=== PATIENT | female | born 1940 | race Caucasian/White ===

== ENCOUNTER 2022-07-13 22:00 | Inpatient (IN) | payer MEDICARE ==
[2022-07-13 22:27] VITALS: BMI 16.5
[2022-07-13] MEDS ORDERED: Ondansetron PF 4 MG/2 ML Vial IVP PRN (22:55)
[2022-07-13] MEDS ORDERED: Senokot S 8.6-50 MG TAB PO PRN (22:55)
[2022-07-13] MEDS ORDERED: Acetaminophen 325 MG TAB PO PRN (22:55)
[2022-07-13] MEDS ORDERED: Bisacodyl 5 MG TAB PO PRN (22:55)
[2022-07-13] MEDS ORDERED: Bisacodyl 10 MG SUPP PR PRN (22:55)
[2022-07-13] MEDS: Sodium Chloride 0.9% 1,000 ML IV SCH (23:39)
[2022-07-13] MEDS ORDERED: Dextrose 50% Abboject 50 ML SYRINGE SLOW IVP PRN (23:44)
[2022-07-13] MEDS ORDERED: Dextrose 5% in Water 1,000 ML IV PRN (23:44)
[2022-07-13] MEDS ORDERED: Ipratropium/Albuterol 3 ML NEB NEB PRN (23:53)
[2022-07-14 00:30] LABS: Troponin I 0.225 ng/mL (< 0.028)
[2022-07-14 02:19] LABS: Troponin I 0.208 ng/mL (< 0.028)
[2022-07-14 04:58] LABS: #Eosinphils 0.1 10x3/uL (0.0-0.5); #Monocytes 0.7 10x3/uL (0.0-1.1); #Neutrophils 7.2 10x3/uL (1.5-8.4); %Basophils 0.2 % (0.0-2.0); %Eosinophils 1.5 % (0.0-6.0); %Lymphocytes 13.4 % (18.0-47.0); %Monocytes 7.4 % (0.0-10.0); %Neutrophils 77.2 % (40.0-75.0); Hemoglobin 11.3 g/dL (12.0-15.5); Mean Corpuscular HGB CONC 34.2 g/dL (32.0-36.0); Mean Corpuscular Volume 90.7 fl (81.6-98.3); Mean Platelet Volume 9.9 fl (7.4-10.4); Platelet Count 150 10x3/uL (150-450); RBC Distribution Width 12.8 % (11.5-14.5); Red Blood Cell (RBC) Count 3.64 10x6/uL (3.90-5.03); White Blood Cell (WBC) Count 9.4 10x3/uL (3.5-10.5)
[2022-07-14 05:08] LABS: ALT (SGPT) 24 U/L (8-55); AST (SGOT) 26 U/L (5-34); Albumin 3.9 g/dL (3.4-4.8); Alkaline Phosphatase 72 U/L (40-110); Anion Gap 16 mmol/L (10-20); BUN (Urea Nitrogen) 28 mg/dL (9.8-20.1); Bilirubin, Direct 0.3 mg/dL (0.1-0.3); Bilirubin, Total 0.7 mg/dL (0.2-1.2); Calc. Creatinine Clearance 19 mL/min (70-130); Calcium 9.9 mg/dL (7.8-10.44); Carbon Dioxide 24 mmol/L (23-31); Chloride 100 mmol/L (98-107); Estimated GFR 31; Glucose 127 mg/dL (83-110); Magnesium 1.6 mg/dL (1.6-2.6); Potassium 4.1 mmol/L (3.5-5.1); Protein, Total 6.6 g/dL (5.8-8.1); Sodium 136 mmol/L (136-145)
[2022-07-14 06:50] LABS: Bilirubin Neg (Negative); Blood, Urine 150 (Negative); Clarity Slightly Cloudy (Clear); Glucose, Urine (Dipstick) Normal (Negative); Ketone, Urine Negative (Negative); Leukocyte 500 (Negative); Nitrite Negative (Negative); Protein, Urine (Dipstick) 100 mg/dl (Neg-Trace); Specific Gravity, Urine 1.005 (1.005-1.030); Urobilinogen Normal mg/dL (Less than 2)
[2022-07-14 07:01] LABS: Bacteria/HPF 4+ HPF (None Seen); CAUTI Indications for Culture Alt mental st,lethar; RBC/HPF 0-3 HPF (0-3); Squamous Epithelial 0-3 HPF (0-3)
[2022-07-14 07:02] LABS: Urine Culture Reflex No No
[2022-07-14] MEDS ORDERED: Aspirin Chewable 81 MG TAB PO SCH (09:00)
[2022-07-14] MEDS: Lantus 1000 UNITS/10 ML VIAL SC SCH ×2 (10:54→22:42)
[2022-07-14] MEDS: Magnesium Oxide 400 MG TAB PO SCH (11:05)
[2022-07-14] MEDS: Sodium Chloride 0.9% 1,000 ML IV SCH ×2 (11:11→16:25)
[2022-07-14] MEDS: Heparin 5,000 UNITS/ML VIAL SC SCH ×3 (11:29→22:03)
[2022-07-14] MEDS: HumaLOG 300 UNITS/3 ML VIAL SC PRN (16:40)
[2022-07-14 20:45] LABS: Campy jejuni + coli by PCR Negative (Negative); STEC Shiga Toxin 1+2 Negative (Negative); Salmonella spp. by PCR Negative (Negative); Shigella spp + EIEC by PCR Negative (Negative)
[2022-07-14] MEDS: Gabapentin 300 MG CAP PO SCH (22:01)
[2022-07-14] MEDS: Atorvastatin Calcium 40 MG TAB PO SCH (22:02)
[2022-07-14] MEDS: Sertraline 100 MG TAB PO SCH (22:02)
[2022-07-14] MEDS: Baclofen 10 MG TAB PO SCH (22:02)
[2022-07-14] MEDS: Ezetimibe 10 MG TAB PO SCH (22:02)
[2022-07-14] MEDS: Calcitriol 0.25 MCG CAP PO SCH (22:03)
[2022-07-15] MEDS: Sodium Chloride 0.9% 1,000 ML IV SCH ×2 (05:21→08:32)
[2022-07-15 06:09] LABS: #Eosinphils 0.3 10x3/uL (0.0-0.5); #Monocytes 0.6 10x3/uL (0.0-1.1); #Neutrophils 4.8 10x3/uL (1.5-8.4); %Basophils 0.6 % (0.0-2.0); %Eosinophils 3.7 % (0.0-6.0); %Lymphocytes 15.6 % (18.0-47.0); %Monocytes 8.7 % (0.0-10.0); Hemoglobin 9.8 g/dL (12.0-15.5); Mean Corpuscular HGB CONC 34.6 g/dL (32.0-36.0); Mean Corpuscular Volume 92.5 fl (81.6-98.3); Mean Platelet Volume 9.8 fl (7.4-10.4); Platelet Count 186 10x3/uL (150-450); RBC Distribution Width 12.8 % (11.5-14.5); Red Blood Cell (RBC) Count 3.06 10x6/uL (3.90-5.03); White Blood Cell (WBC) Count 6.8 10x3/uL (3.5-10.5)
[2022-07-15 06:34] LABS: Anion Gap 15 mmol/L (10-20); BUN (Urea Nitrogen) 29 mg/dL (9.8-20.1); Calc. Creatinine Clearance 20 mL/min (70-130); Calcium 9.1 mg/dL (7.8-10.44); Carbon Dioxide 23 mmol/L (23-31); Chloride 106 mmol/L (98-107); Estimated GFR 33; Glucose 158 mg/dL (83-110); Magnesium 1.4 mg/dL (1.6-2.6); Sodium 140 mmol/L (136-145)
[2022-07-15] MEDS ORDERED: Magnesium Sulfate 4 GM in Sodium Chloride 0.9% 250 ML 250 ML IVPB SCH (07:45)
[2022-07-15] MEDS ORDERED: Electrolyte Replacement Protocol 1 EACH FS SCH (07:45)
[2022-07-15] MEDS: Magnesium 2 GM/50 ML(in water) 2 GM in Premix Bag 1 BAG IVPB SCH ×2 (08:33→11:13)
[2022-07-15] MEDS: Magnesium Oxide 400 MG TAB PO SCH (08:35)
[2022-07-15] MEDS: Heparin 5,000 UNITS/ML VIAL SC SCH ×2 (08:38→14:25)
[2022-07-15] MEDS: Lantus 1000 UNITS/10 ML VIAL SC SCH (08:38)
[2022-07-15] MEDS: HumaLOG 300 UNITS/3 ML VIAL SC PRN ×2 (11:10→17:02)
[2022-07-15] MEDS: Sertraline 100 MG TAB PO SCH (21:54)
[2022-07-15] MEDS: Atorvastatin Calcium 40 MG TAB PO SCH (21:54)
[2022-07-15] MEDS: Gabapentin 300 MG CAP PO SCH (21:55)
[2022-07-15] MEDS: Calcitriol 0.25 MCG CAP PO SCH (21:55)
[2022-07-15] MEDS: Ezetimibe 10 MG TAB PO SCH (21:55)
[2022-07-15] MEDS: Baclofen 10 MG TAB PO SCH (21:56)
[2022-07-16] MEDS: Lantus 1000 UNITS/10 ML VIAL SC SCH ×3 (00:19→22:07)
[2022-07-16] MEDS: Sodium Chloride 0.9% 1,000 ML IV SCH ×3 (02:15→22:06)
[2022-07-16 05:57] LABS: #Eosinphils 0.1 10x3/uL (0.0-0.5); #Monocytes 0.5 10x3/uL (0.0-1.1); #Neutrophils 3.9 10x3/uL (1.5-8.4); %Basophils 0.4 % (0.0-2.0); %Eosinophils 2.2 % (0.0-6.0); %Lymphocytes 15.3 % (18.0-47.0); %Monocytes 8.4 % (0.0-10.0); %Neutrophils 73.3 % (40.0-75.0); Hemoglobin 8.9 g/dL (12.0-15.5); Mean Corpuscular HGB CONC 34.5 g/dL (32.0-36.0); Mean Corpuscular Hemoglobin 31.1 pg (27.0-33.0); Mean Corpuscular Volume 90.2 fl (81.6-98.3); Mean Platelet Volume 9.2 fl (7.4-10.4); Platelet Count 180 10x3/uL (150-450); RBC Distribution Width 12.7 % (11.5-14.5); Red Blood Cell (RBC) Count 2.86 10x6/uL (3.90-5.03); White Blood Cell (WBC) Count 5.4 10x3/uL (3.5-10.5)
[2022-07-16 06:06] LABS: Anion Gap 12 mmol/L (10-20); BUN (Urea Nitrogen) 24 mg/dL (9.8-20.1); Calc. Creatinine Clearance 23 mL/min (70-130); Calcium 8.6 mg/dL (7.8-10.44); Carbon Dioxide 22 mmol/L (23-31); Chloride 109 mmol/L (98-107); Estimated GFR 38; Glucose 176 mg/dL (83-110); Magnesium 2.1 mg/dL (1.6-2.6); Potassium 3.5 mmol/L (3.5-5.1); Sodium 139 mmol/L (136-145)
[2022-07-16] MEDS: HumaLOG 300 UNITS/3 ML VIAL SC PRN (06:36)
[2022-07-16] MEDS ORDERED: Potassium Chloride 20 MEQ TAB PO SCH (08:00)
[2022-07-16] MEDS: Calcitriol 0.25 MCG CAP PO SCH (22:04)
[2022-07-16] MEDS: Sertraline 100 MG TAB PO SCH (22:04)
[2022-07-16] MEDS: Ezetimibe 10 MG TAB PO SCH (22:04)
[2022-07-16] MEDS: Atorvastatin Calcium 40 MG TAB PO SCH (22:04)
[2022-07-16] MEDS: Baclofen 10 MG TAB PO SCH (22:05)
[2022-07-16] MEDS: Gabapentin 300 MG CAP PO SCH (22:05)
[2022-07-17 08:20] LABS: #Eosinphils 0.2 10x3/uL (0.0-0.5); #Monocytes 0.6 10x3/uL (0.0-1.1); #Neutrophils 5.3 10x3/uL (1.5-8.4); %Basophils 0.4 % (0.0-2.0); %Eosinophils 2.2 % (0.0-6.0); %Lymphocytes 17.1 % (18.0-47.0); %Monocytes 8.3 % (0.0-10.0); %Neutrophils 71.6 % (40.0-75.0); Hemoglobin 10.3 g/dL (12.0-15.5); Mean Corpuscular HGB CONC 33.9 g/dL (32.0-36.0); Mean Corpuscular Hemoglobin 31.5 pg (27.0-33.0); Mean Platelet Volume 9.6 fl (7.4-10.4); Platelet Count 241 10x3/uL (150-450); RBC Distribution Width 12.6 % (11.5-14.5); Red Blood Cell (RBC) Count 3.27 10x6/uL (3.90-5.03); White Blood Cell (WBC) Count 7.3 10x3/uL (3.5-10.5)
[2022-07-17 08:28] LABS: Anion Gap 15 mmol/L (10-20); BUN (Urea Nitrogen) 20 mg/dL (9.8-20.1); Calc. Creatinine Clearance 22 mL/min (70-130); Calcium 9.3 mg/dL (7.8-10.44); Carbon Dioxide 21 mmol/L (23-31); Chloride 108 mmol/L (98-107); Estimated GFR 37; Glucose 184 mg/dL (83-110); Sodium 140 mmol/L (136-145)
[2022-07-17] MEDS ORDERED: Ondansetron PF 4 MG/2 ML Vial ONE (09:09)
[2022-07-17] MEDS: Lantus 1000 UNITS/10 ML VIAL SC SCH ×2 (09:12→22:48)
[2022-07-17] MEDS: Sodium Chloride 0.9% 1,000 ML IV SCH (09:16)
[2022-07-17] MEDS: HumaLOG 300 UNITS/3 ML VIAL SC PRN (12:13)
[2022-07-17] MEDS: metroNIDAZOLE 500 MG TAB PO SCH ×2 (16:25→22:13)
[2022-07-17] MEDS: Baclofen 10 MG TAB PO SCH (22:12)
[2022-07-17] MEDS: Gabapentin 300 MG CAP PO SCH (22:12)
[2022-07-17] MEDS: Sertraline 100 MG TAB PO SCH ×2 (22:13→22:14)
[2022-07-17] MEDS: Ezetimibe 10 MG TAB PO SCH (22:13)
[2022-07-17] MEDS: Calcitriol 0.25 MCG CAP PO SCH (22:14)
[2022-07-17] MEDS: Atorvastatin Calcium 40 MG TAB PO SCH (22:14)
[2022-07-18 04:55] LABS: #Eosinphils 0.1 10x3/uL (0.0-0.5); #Monocytes 0.7 10x3/uL (0.0-1.1); #Neutrophils 5.1 10x3/uL (1.5-8.4); %Basophils 0.4 % (0.0-2.0); %Eosinophils 1.4 % (0.0-6.0); %Monocytes 9.9 % (0.0-10.0); %Neutrophils 72.9 % (40.0-75.0); Hemoglobin 8.9 g/dL (12.0-15.5); Mean Corpuscular Hemoglobin 31.3 pg (27.0-33.0); Mean Corpuscular Volume 92.3 fl (81.6-98.3); Mean Platelet Volume 9.6 fl (7.4-10.4); Platelet Count 188 10x3/uL (150-450); RBC Distribution Width 12.7 % (11.5-14.5); Red Blood Cell (RBC) Count 2.84 10x6/uL (3.90-5.03); White Blood Cell (WBC) Count 7.1 10x3/uL (3.5-10.5)
[2022-07-18 05:09] LABS: Anion Gap 13 mmol/L (10-20); BUN (Urea Nitrogen) 22 mg/dL (9.8-20.1); Calc. Creatinine Clearance 21 mL/min (70-130); Calcium 9.1 mg/dL (7.8-10.44); Carbon Dioxide 23 mmol/L (23-31); Chloride 109 mmol/L (98-107); Estimated GFR 36; Glucose 115 mg/dL (83-110); Magnesium 1.4 mg/dL (1.6-2.6); Phosphorus 3.1 mg/dL (2.3-4.7); Sodium 141 mmol/L (136-145)
[2022-07-18] MEDS: Sodium Chloride 0.9% 1,000 ML IV SCH (07:31)
[2022-07-18] MEDS: Magnesium 2 GM/50 ML(in water) 2 GM in Premix Bag 1 BAG IVPB SCH ×2 (07:35→09:16)
[2022-07-18] MEDS: metroNIDAZOLE 500 MG TAB PO SCH ×4 (09:16→23:00)
[2022-07-18] MEDS: Lantus 1000 UNITS/10 ML VIAL SC SCH ×2 (09:16→21:40)
[2022-07-18] MEDS: HumaLOG 300 UNITS/3 ML VIAL SC PRN (12:31)
[2022-07-18] MEDS ORDERED: HumaLOG 300 UNITS/3 ML VIAL SC PRN (18:20)
[2022-07-18] MEDS: Atorvastatin Calcium 40 MG TAB PO SCH ×2 (22:42→23:00)
[2022-07-18] MEDS: Calcitriol 0.25 MCG CAP PO SCH ×2 (22:42→23:00)
[2022-07-18] MEDS: Ezetimibe 10 MG TAB PO SCH ×2 (22:42→23:00)
[2022-07-18] MEDS: Sertraline 100 MG TAB PO SCH (22:43)
[2022-07-19 05:47] LABS: #Eosinphils 0.1 10x3/uL (0.0-0.5); #Monocytes 0.7 10x3/uL (0.0-1.1); #Neutrophils 6.8 10x3/uL (1.5-8.4); %Basophils 0.2 % (0.0-2.0); %Lymphocytes 13.6 % (18.0-47.0); %Monocytes 7.8 % (0.0-10.0); %Neutrophils 76.5 % (40.0-75.0); Hemoglobin 8.8 g/dL (12.0-15.5); Mean Corpuscular HGB CONC 33.8 g/dL (32.0-36.0); Mean Corpuscular Hemoglobin 30.9 pg (27.0-33.0); Mean Corpuscular Volume 91.2 fl (81.6-98.3); Mean Platelet Volume 9.5 fl (7.4-10.4); Platelet Count 228 10x3/uL (150-450); RBC Distribution Width 12.8 % (11.5-14.5); Red Blood Cell (RBC) Count 2.85 10x6/uL (3.90-5.03); White Blood Cell (WBC) Count 8.9 10x3/uL (3.5-10.5)
[2022-07-19 05:57] LABS: Anion Gap 12 mmol/L (10-20); BUN (Urea Nitrogen) 24 mg/dL (9.8-20.1); Calc. Creatinine Clearance 23 mL/min (70-130); Calcium 9.3 mg/dL (7.8-10.44); Carbon Dioxide 23 mmol/L (23-31); Chloride 108 mmol/L (98-107); Estimated GFR 38; Glucose 150 mg/dL (83-110); Magnesium 1.7 mg/dL (1.6-2.6); Potassium 3.7 mmol/L (3.5-5.1); Sodium 139 mmol/L (136-145)
[2022-07-19] MEDS ORDERED: Magnesium 2 GM/50 ML(in water) 2 GM in Premix Bag 1 BAG IVPB SCH (08:00)
[2022-07-19] MEDS ORDERED: Magnesium 2 GM/50 ML BAG (IN WATER) ONE (08:05)
[2022-07-19] MEDS: metroNIDAZOLE 500 MG TAB PO SCH ×3 (09:05→21:05)
[2022-07-19] MEDS: Lantus 1000 UNITS/10 ML VIAL SC SCH ×2 (09:06→21:09)
[2022-07-19] MEDS: HumaLOG 300 UNITS/3 ML VIAL SC PRN (16:19)
[2022-07-19] MEDS: Nystatin 500,000 UNITS/5 ML UDCUP SSW SCH ×2 (19:49→21:18)
[2022-07-19] MEDS: Calcitriol 0.25 MCG CAP PO SCH (21:02)
[2022-07-19] MEDS: Ezetimibe 10 MG TAB PO SCH (21:02)
[2022-07-19] MEDS: Sertraline 100 MG TAB PO SCH (21:05)
[2022-07-19] MEDS: Atorvastatin Calcium 40 MG TAB PO SCH (21:05)
[2022-07-20 05:55] LABS: Anion Gap 16 mmol/L (10-20); BUN (Urea Nitrogen) 22 mg/dL (9.8-20.1); Calc. Creatinine Clearance 24 mL/min (70-130); Calcium 9.6 mg/dL (7.8-10.44); Carbon Dioxide 22 mmol/L (23-31); Chloride 107 mmol/L (98-107); Estimated GFR 41; Glucose 83 mg/dL (83-110); Magnesium 1.5 mg/dL (1.6-2.6); Potassium 3.6 mmol/L (3.5-5.1); Sodium 141 mmol/L (136-145)
[2022-07-20 06:11] LABS: #Eosinphils 0.1 10x3/uL (0.0-0.5); #Monocytes 0.4 10x3/uL (0.0-1.1); %Basophils 0.5 % (0.0-2.0); %Eosinophils 2.1 % (0.0-6.0); %Lymphocytes 15.3 % (18.0-47.0); %Monocytes 6.5 % (0.0-10.0); %Neutrophils 75.1 % (40.0-75.0); Hemoglobin 9.4 g/dL (12.0-15.5); Mean Corpuscular HGB CONC 33.9 g/dL (32.0-36.0); Mean Corpuscular Hemoglobin 30.7 pg (27.0-33.0); Mean Corpuscular Volume 90.5 fl (81.6-98.3); Mean Platelet Volume 9.5 fl (7.4-10.4); Platelet Count 260 10x3/uL (150-450); RBC Distribution Width 12.7 % (11.5-14.5); Red Blood Cell (RBC) Count 3.06 10x6/uL (3.90-5.03); White Blood Cell (WBC) Count 6.6 10x3/uL (3.5-10.5)
[2022-07-20] MEDS ORDERED: Magnesium 2 GM/50 ML(in water) 2 GM in Premix Bag 1 BAG IVPB SCH (08:00)
[2022-07-20] MEDS: Lantus 1000 UNITS/10 ML VIAL SC SCH (09:51)
[2022-07-20] MEDS: Nystatin 500,000 UNITS/5 ML UDCUP SSW SCH (09:51)
[2022-07-20] MEDS: metroNIDAZOLE 500 MG TAB PO SCH (09:51)
[2022-07-20 10:20] VITALS: BP 116/56; TEMP 97.3
[2022-07-20] MEDS: HumaLOG 300 UNITS/3 ML VIAL SC PRN (12:13)
== END 2022-07-20 12:30 | disposition home health service (06) | DRG 391 ==
LOC: CSHTELE 22:00 → INTOOBSV 22:00 → OBSVTOIN 07-14 18:48
PROVIDERS: ADMIT Family Medicine; ATTEND Internal Medicine
DX: A08.4 Viral intestinal infection, unspecified (principal); G93.41 Metabolic encephalopathy; I21.A1 Myocardial infarction type 2; N18.4 Chronic kidney disease, stage 4 (severe); I13.0 Hypertensive heart and chronic kidney disease with heart failure and stage 1 through stage 4 chronic kidney disease, or unspecified chronic kidney disease; Z68.1 Body mass index [BMI] 19.9 or less, adult; N17.9 Acute kidney failure, unspecified; E87.1 Hypo-osmolality and hyponatremia; E86.0 Dehydration; Z66 Do not resuscitate; I25.10 Atherosclerotic heart disease of native coronary artery without angina pectoris; E78.5 Hyperlipidemia, unspecified; J44.9 Chronic obstructive pulmonary disease, unspecified; Z96.641 Presence of right artificial hip joint; F41.9 Anxiety disorder, unspecified; F32.A Depression, unspecified; E11.22 Type 2 diabetes mellitus with diabetic chronic kidney disease; D63.1 Anemia in chronic kidney disease; I48.0 Paroxysmal atrial fibrillation; R63.6 Underweight; K57.30 Diverticulosis of large intestine without perforation or abscess without bleeding; E83.42 Hypomagnesemia; Z88.8 Allergy status to other drugs, medicaments and biological substances; Z88.5 Allergy status to narcotic agent; Z79.899 Other long term (current) drug therapy; Z98.890 Other specified postprocedural states; Z95.5 Presence of coronary angioplasty implant and graft; Z95.1 Presence of aortocoronary bypass graft; Z90.710 Acquired absence of both cervix and uterus; E78.00 Pure hypercholesterolemia, unspecified; Z79.4 Long term (current) use of insulin
CPT/HCPCS: 36415; 36416; 70450; 71045; 74022; 74176; 80048; 80053; 80076; 81001; 82553; 83605; 83630; 83735; 84100; 84443; 84484; 85025; 87040; 87505; 93005; 94760; 96372; G0378; J1644; J1815; J2405; J3475; J7050